=== PATIENT | female | born 1950 | race Caucasian/White ===

== ENCOUNTER 2017-10-21 10:57 | Inpatient (IN) | payer OTHER, MEDICARE ==
[2017-10-21 11:00] VITALS: BMI 32.7
[2017-10-21] MEDS ORDERED: Lidocaine 2% w Epi 1:200,000 Pf Inj IJ ONE (12:02)
[2017-10-21] MEDS ORDERED: Tdap Vaccine 0.5 ml Vial (10-64 yrs) IM ONE ×2 (12:03→13:14)
--- NOTE | 2017-10-21 12:53 | ED PDOC ---
HPI: Trauma/Fall - HPI Chief Complaint (Nursing): Trauma History Per: Patient Onset/Duration Of Symptoms: Hrs (1) Injury Occurred (Timing): Hours Ago: Location Of Injury: Left: Face, Shoulder, Anterior: Face Severity: Moderate Pain Scale Rating Of: 4 Associated Symptoms: Memory Impairment. denies: Dizziness Additional Complaint(s): Fell at work striking head and left shoulder. Does not recall circumstances of fall or if she lost consciousness. Denies dizziness or chest pain or palpitations prior to fall.. No focal weakness or parasthesias Past Medical History Vital Signs: Last Vital Signs Temp 98.3 F 10/21/17 11:00 Pulse 94 H 10/21/17 11:00 Resp 20 10/21/17 11:00 BP 165/101 H 10/21/17 11:00 Pulse Ox 96 10/21/17 11:00 - Medical History PMH: Asthma, Hyperlipidemia - Family History Family History: States: Unknown Family Hx - Allergies Allergies/Adverse Reactions: Allergies Allergy/AdvReac Type Severity Reaction Status Date / Time codeine Allergy RASH Verified 10/21/17 11:30 Review of Systems Cardiovascular: Negative for: Chest Pain, Palpitations Musculoskeletal: Positive for: Shoulder Pain Neurological: Positive for: Headache. Negative for: Weakness, Numbness Physical Exam - Reviewed Nursing Documentation Reviewed: Yes Vital Signs Reviewed: Yes - Physical Exam Appears: Positive for: Non-toxic, No Acute Distress Head Exam: Positive for: NORMOCEPHALIC. Negative for: ATRAUMATIC (2.5 cm lac above left eyebrow. No palp fx or stepoff) Skin: Positive for: Normal Color, Warm, DRY Eye Exam: Positive for: EOMI, Normal appearance, PERRL ENT: Positive for: Normal ENT Inspection Neck: Positive for: Normal, Painless ROM Cardiovascular/Chest: Positive for: Regular Rate, Rhythm Respiratory: Positive for: CNT, Normal Breath Sounds Pulses-Radial (L): 2+ Pulses-Radial (R): 2+ Gastrointestinal/Abdominal: Positive for: Normal Exam, Soft Back: Positive for: Normal Inspection Extremity: Positive for: Tenderness (Left shoulder. No deformity. ROM limited by pain) Neurologic/Psych: Positive for: Alert, Oriented. Negative for: Motor/Sensory Deficits - Laboratory Results Result Diagrams: 10/21/17 13:18 10/21/17 13:18 - ECG O2 Sat by Pulse Oximetry: 96 Procedures - Laceration/Wound Repair Face Wound Length (cm): 2.5 Wound's Depth, Shape: superficial, linear Wound Explored: no foreign body removed Irrigated w/ Saline (ccs): 500 Anesthesia: Lidocaine w/ Epi Volume Anesthetic (ccs): 3 Wound Repaired With: Sutures Suture Size/Type: 6:0, nylon Number of Sutures: 9 Layer Closure?: No Wound Complexity: Simple Disposition - Clinical Impression Clinical Impression: Syncope - Patient ED Disposition Is Patient to be Admitted: Yes - Disposition Disposition Time: 14:57 Condition: FAIR Forms: [employer] ([place]), [facility] ED School/Work Excuse - Pt Status Changed To: Hospital Disposition Of: Observation - POA Present On Arrival: None
[2017-10-21 13:24] LABS: BASO # 0.1 K/uL (0.0-0.2); BASO % 0.5 % (0.0-2.0); EOS # 0.1 K/uL (0.0-0.7); EOS % 0.8 % (0.0-4.0); HEMOGLOBIN 13.3 g/dL (12.0-16.0); LYMPH # 1.4 K/uL (1.0-4.3); LYMPH % 11.5 % (20.0-40.0); MEAN CELL VOLUME 95.2 fl (81.0-99.0); MEAN CORPUSCULAR HEMOGLOBIN 32.4 pg (27.0-31.0); MEAN PLATELET VOLUME 7.7 fl (7.2-11.7); MONO # 0.7 K/uL (0.0-0.8); MONO % 5.4 % (0.0-10.0); NEUT % 81.8 % (50.0-75.0); NRBC % 0.1 % (0.0-0.0); RBC 4.1 Mil/uL (3.80-5.20); RED CELL DISTRIBUTION WIDTH 13.1 % (11.5-14.5); WHITE BLOOD COUNT 12.2 K/uL (4.8-10.8)
[2017-10-21 13:43] LABS: ALBUMIN 4.3 g/dL (3.5-5.0); ALT/SGPT 32 U/L (9-52); AST/SGOT 22 U/L (14-36); BLOOD UREA NITROGEN 26 mg/dl (7-17); CALCIUM 9.3 mg/dL (8.4-10.2); GFR AFRICAN-AMERICAN > 60; GFR NON-AFRICAN AMERICAN > 60
--- NOTE | 2017-10-21 13:53 | RAD ---
PROCEDURE: Radiographs of the Left Shoulder HISTORY: trauma COMPARISON: 11/23/2014 left shoulder radiographs FINDINGS: BONES: Normal. No fracture. JOINTS: Preserved glenohumeral relationship, acromioclavicular degenerative change: Mild SOFT TISSUES: Normal. OTHER FINDINGS: None. IMPRESSION: No acute findings related to/accounting for the clinical presentation. No significant interval change compared to the prior examination(s).
--- NOTE | 2017-10-21 15:05 | CT ---
PROCEDURE: CT HEAD WITHOUT CONTRAST. HISTORY: r/o bleed COMPARISON: None available. TECHNIQUE: Axial computed tomography images were obtained through the head/brain without intravenous contrast. Radiation dose: Total exam DLP = 815.03 mGy-cm. This CT exam was performed using one or more of the following dose reduction techniques: Automated exposure control, adjustment of the mA and/or kV according to patient size, and/or use of iterative reconstruction technique. FINDINGS: HEMORRHAGE: No intracranial hemorrhage. BRAIN: Good corticomedullary differentiation is seen. There is limited white matter lucency compatible with diffuse cerebral atrophy and chronic microangiopathy. No suspicious extra-axial fluid collection is identified and the midline brain anatomy appears grossly nonfocal as imaged. There is no mass effect throughout. VENTRICLES: Unremarkable. No hydrocephalus. CALVARIUM: Unremarkable. PARANASAL SINUSES: Unremarkable as visualized. No significant inflammatory changes. MASTOID AIR CELLS: Unremarkable as visualized. No inflammatory changes. OTHER FINDINGS: None. IMPRESSION: Limited chronic microangiopathy is appreciate with remainder the CT examination of the head unremarkable otherwise. Follow up CT or MRI are available if clinically warranted.
[2017-10-21] MEDS: Sodium Chloride 0.9% 1,000 ML IV SCH (17:56)
--- NOTE | 2017-10-21 18:50 | CP.PCM.HP ---
Past Patient History - Past Medical History & Family History Past Medical History?: Yes - Past Social History Smoking Status: Never Smoked - CARDIAC Hx Cardiac Disorders: Yes Hx Hypercholesterolemia: Yes - PULMONARY Hx Respiratory Disorders: Yes Hx Asthma: Yes - NEUROLOGICAL Hx Neurological Disorder: Yes Hx Syncope: Yes (today) - HEENT Hx HEENT Problems: No - RENAL Hx Chronic Kidney Disease: No - ENDOCRINE/METABOLIC Hx Endocrine Disorders: No - HEMATOLOGICAL/ONCOLOGICAL Hx Blood Disorders: No Hx AIDS: No Hx Human Immunodeficiency Virus (HIV): No - INTEGUMENTARY Hx Dermatological Problems: No - MUSCULOSKELETAL/RHEUMATOLOGICAL Hx Musculoskeletal Disorders: Yes Hx Arthritis: Yes (left shoulder) Hx Falls: Yes (Syncope today) - GASTROINTESTINAL Hx Gastrointestinal Disorders: No - GENITOURINARY/GYNECOLOGICAL Hx Genitourinary Disorders: No - PSYCHIATRIC Hx Psychophysiologic Disorder: No Hx Substance Use: No - SURGICAL HISTORY Hx Surgeries: Yes Hx Joint Replacement: Yes (Bilateral Hip Prosthesis 2003) Other/Comment: LEFT FOOT DISLOCARTION W/ BUNION SURGERY - ANESTHESIA Hx Anesthesia: Yes Hx Anesthesia Reactions: No Hx Malignant Hyperthermia: No Has any member of the family had a problem w/ anesthesia?: No Meds Allergies/Adverse Reactions: Allergies Allergy/AdvReac Type Severity Reaction Status Date / Time codeine Allergy RASH Verified 10/21/17 11:30 Results - Vital Signs Recent Vital Signs: Last Vital Signs Temp 97 F L 10/21/17 17:21 Pulse 90 10/21/17 17:50 Resp 18 10/21/17 17:50 BP 128/78 10/21/17 17:21 Pulse Ox 98 10/21/17 17:50 - Labs Result Diagrams: 10/21/17 13:18 10/21/17 13:18 Labs: Laboratory Results - last 24 hr 10/21/17 10/21/17 10/21/17 11:17 13:18 13:18 WBC 12.2 H RBC 4.10 Hgb 13.3 Hct 39.0 MCV 95.2 MCH 32.4 H MCHC 34.0 RDW 13.1 Plt Count 349 MPV 7.7 Neut % (Auto) 81.8 H Lymph % (Auto) 11.5 L [place] % (Auto) 5.4 Eos % (Auto) 0.8 Baso % (Auto) 0.5 Neut # (Auto) 10.0 H Lymph # (Auto) 1.4 [place] # (Auto) 0.7 Eos # (Auto) 0.1 Baso # (Auto) 0.1 Sodium 140 Potassium 4.1 Chloride 102 Carbon Dioxide 23 Anion Gap 19 BUN 26 H Creatinine 0.4 L Est GFR ( Amer) > 60 Est GFR (Non-Af Amer) > 60 POC Glucose (mg/dL) 95 Random Glucose 107 H Calcium 9.3 Total Bilirubin 0.5 AST 22 ALT 32 Alkaline Phosphatase 119 Troponin I < 0.0120 Total Protein 8.8 H Albumin 4.3 Globulin 4.5 H Albumin/Globulin Ratio 1.0
[2017-10-22] MEDS: Sodium Chloride 0.9% 1,000 ML IV SCH (04:09)
[2017-10-22] MEDS: Enoxaparin 40 mg Syringe SC SCH (08:57)
[2017-10-22 19:39] LABS: SQUAMOUS EPITHIAL 1 /hpf (0-5); URINE BILIRUBIN NEGATIVE (NEGATIVE); URINE BLOOD NEGATIVE (NEGATIVE); URINE CLARITY CLEAR (Clear); URINE COLOR YELLOW (YELLOW); URINE GLUCOSE (UA) NEG (Normal); URINE LEUKOCYTE ESTERASE NEG Leu/uL (Negative); URINE PROTEIN NEGATIVE (NEGATIVE); URINE UROBILINOGEN 0.2-1.0 mg/dL (0.2-1.0)
--- NOTE | 2017-10-22 22:47 | CP.PCM.PN ---
Subjective - Date & Time of Evaluation Date of Evaluation: 10/22/17 Time of Evaluation: 16:50 Objective - Vital Signs/Intake and Output Vital Signs (last 24 hours): Temp Pulse Resp BP Pulse Ox 97.8 F 80 18 135/83 97 10/22/17 19:53 10/22/17 19:53 10/22/17 19:53 10/22/17 19:53 10/22/17 19:53 - Medications Medications: Current Medications Acetaminophen (Tylenol 325mg Tab) 650 mg PO Q6 PRN PRN Reason: Headache Last Admin: 10/22/17 15:47 Dose: 650 mg Atorvastatin Calcium (Lipitor) 40 mg PO HS GALO Last Admin: 10/22/17 21:44 Dose: Not Given Enoxaparin Sodium (Lovenox) 40 mg SC DAILY GALO PRN Reason: Protocol Last Admin: 10/22/17 08:57 Dose: 40 mg Ketorolac Tromethamine (Toradol) 15 mg IVP Q6 PRN PRN Reason: Pain, severe (8-10) Last Admin: 10/22/17 21:43 Dose: 15 mg - Labs Labs: 10/21/17 13:18 10/21/17 13:18
[2017-10-23 05:28] LABS: HEMOGLOBIN 13.4 g/dL (12.0-16.0); MEAN CORPUSCULAR HEMOGLOBIN 32.8 pg (27.0-31.0); MEAN CORPUSCULAR HGB CONC 34.2 g/dL (33.0-37.0); RBC 4.08 Mil/uL (3.80-5.20); RED CELL DISTRIBUTION WIDTH 13.3 % (11.5-14.5); WHITE BLOOD COUNT 10.9 K/uL (4.8-10.8)
[2017-10-23 05:37] LABS: BLOOD UREA NITROGEN 18 mg/dl (7-17); CALCIUM 9.5 mg/dL (8.4-10.2); GFR AFRICAN-AMERICAN > 60; GFR NON-AFRICAN AMERICAN > 60
[2017-10-23] MEDS: Enoxaparin 40 mg Syringe SC SCH (09:33)
--- NOTE | 2017-10-23 09:51 | CP.PCM.CON ---
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 Except for bilateral hip replacement the patient has never been hospitalized. The only medication she takes is a statin. She denies any palpitations or prior syncope or near syncope. She does not have a prior history of hypertension or diabetes and denies any recent history of dehydration. The patient reports that she woke up she had not had bladder or bowel incontinence and had not bitten her tongue. Her coworkers had not reported any repetitive motor activity. Physical examination shows a pleasant middle aged female who is alert awake and coherent sitting in a chair and can carry on a conversation. Telemetry demonstrated steady sinus rhythm at physiological rates. Yesterday following the use of her bathroom she had a lightheaded spell and vomited. (This may represent concussion from the blunt trauma to the head which has also produced a laceration above her left eyebrow.) Her heart rate was 80 bpm regular and her blood pressure was 140/70 mmHg. Her jugular venous pressure was not elevated and there was no edema or lower extremity. The pedal pulses were well felt there were no carotid bruits. Thyroid and breast did not reveal anything abnormal. The apex was not palpable the first and second heart sounds are normal there was no murmur or gallop there were no rales. Her electrocardiogram showed sinus rhythm with a right bundle branch block. Her echocardiogram showed preserved left ventricular systolic function with depressed diastolic compliance. Her lab data was noted. Impression: Syncope. Rule out seizure disorder. At this point no evidence of cardiovascular abnormality has been detected to indicate etiology of her syncopal episode. I would strongly recommend a neurological evaluation. Past Patient History - Past Medical History & Family History Past Medical History?: Yes - Past Social History Smoking Status: Never Smoked - CARDIAC Hx Cardiac Disorders: Yes Hx Hypercholesterolemia: Yes - PULMONARY Hx Respiratory Disorders: Yes Hx Asthma: Yes - NEUROLOGICAL Hx Neurological Disorder: Yes Hx Syncope: Yes (today) - HEENT Hx HEENT Problems: No - RENAL Hx Chronic Kidney Disease: No - ENDOCRINE/METABOLIC Hx Endocrine Disorders: No - HEMATOLOGICAL/ONCOLOGICAL Hx Blood Disorders: No Hx AIDS: No Hx Human Immunodeficiency Virus (HIV): No - INTEGUMENTARY Hx Dermatological Problems: No - MUSCULOSKELETAL/RHEUMATOLOGICAL Hx Musculoskeletal Disorders: Yes Hx Arthritis: Yes (left shoulder) Hx Falls: Yes (Syncope today) - GASTROINTESTINAL Hx Gastrointestinal Disorders: No - GENITOURINARY/GYNECOLOGICAL Hx Genitourinary Disorders: No - PSYCHIATRIC Hx Psychophysiologic Disorder: No Hx Substance Use: No - SURGICAL HISTORY Hx Surgeries: Yes Hx Joint Replacement: Yes (Bilateral Hip Prosthesis 2003) Other/Comment: LEFT FOOT DISLOCARTION W/ BUNION SURGERY - ANESTHESIA Hx Anesthesia: Yes Hx Anesthesia Reactions: No Hx Malignant Hyperthermia: No Has any member of the family had a problem w/ anesthesia?: No Meds Allergies/Adverse Reactions: Allergies Allergy/AdvReac Type Severity Reaction Status Date / Time codeine Allergy RASH Verified 10/21/17 11:30 - Medications Medications: Current Medications Acetaminophen (Tylenol 325mg Tab) 650 mg PO Q6 PRN PRN Reason: Headache Last Admin: 10/22/17 15:47 Dose: 650 mg Atorvastatin Calcium (Lipitor) 40 mg PO HS GALO Last Admin: 10/22/17 21:44 Dose: Not Given Enoxaparin Sodium (Lovenox) 40 mg SC DAILY GALO PRN Reason: Protocol Last Admin: 10/23/17 09:33 Dose: Not Given Ketorolac Tromethamine (Toradol) 15 mg IVP Q6 PRN PRN Reason: Pain, severe (8-10) Last Admin: 10/22/17 21:43 Dose: 15 mg Results - Vital Signs Recent Vital Signs: Last Vital Signs Temp 97.9 F 10/23/17 07:54 Pulse 98 H 10/23/17 07:54 Resp 18 10/23/17 07:54 BP 154/82 H 10/23/17 07:54 Pulse Ox 96 10/23/17 07:54 - Labs Result Diagrams: 10/23/17 04:20 10/23/17 04:20 Labs: Laboratory Results - last 24 hr 10/22/17 10/23/17 10/23/17 19:10 04:20 04:20 WBC 10.9 H RBC 4.08 Hgb 13.4 Hct 39.1 MCV 96.0 MCH 32.8 H MCHC 34.2 RDW 13.3 Plt Count 355 Sodium 139 Potassium 4.2 Chloride 101 Carbon Dioxide 25 Anion Gap 17 BUN 18 H Creatinine 0.4 L Est GFR ( Amer) > 60 Est GFR (Non-Af Amer) > 60 Random Glucose 106 H Calcium 9.5 Urine Color Yellow Urine Clarity Clear Urine pH 5.0 Ur Specific [place] 1.024 Urine Protein Negative Urine Glucose (UA) Neg Urine Ketones Negative Urine Blood Negative Urine Nitrate Negative Urine Bilirubin Negative Urine Urobilinogen 0.2-1.0 Ur Leukocyte Esterase Neg Urine RBC (Auto) 1 Urine Microscopic WBC 2 Ur Squamous Epith Cells 1 Hyaline Casts 3-5 H
--- NOTE | 2017-10-23 11:46 | CARD ---
APPROVED REPORT EXAM: Two-dimensional and M-mode echocardiogram with Doppler and color Doppler. Other Information Quality : GoodRhythm : NSR INDICATION Syncope 2D DIMENSIONS IVSd1.13 (0.7-1.1cm)LVDd4.26 (3.9-5.9cm) LVOT Diameter1.76 (1.8-2.4cm)PWd1.04 (0.7-1.1cm) IVSs1.38 (0.8-1.2cm)LVDs2.78 (2.5-4.0cm) FS (%) 34.6 %PWs1.48 (0.8-1.2cm) M-Mode DIMENSIONS Left Atrium (MM)3.99 (2.5-4.0cm)IVSd1.06 (0.7-1.1cm) Aortic Root2.96 (2.2-3.7cm)LVDd4.68 (4.0-5.6cm) Aortic Cusp Exc.1.90 (1.5-2.0cm)PWd0.77 (0.7-1.1cm) IVSs1.90 cmFS (%) 52 % LVDs2.26 (2.0-3.8cm)PWs1.39 cm Aortic Valve AoV Peak Mpzhdluj495.2cm/sAoV VTI25.0cmAO Peak GR.6mmHg LVOT Peak Gejlpypj098.2cm/sLVOT VTI22.36cmAO Mean GR.3mmHg DUANE (VMAX)1.17hl2SXA (VTI)1.19cm2 Mitral Valve MV E Uxrdopif76.8cm/sMV DECEL VSYN026haNY A Neqnbnuz86.6cm/s MV QXK95pvB/A ratio0.7MVA (PHT)2.56cm2 TDI Lateral E' Peak V8.31cm/sMedial E' Peak V7.09cm/sE/Lateral E'7.2 E/Medial E'8.4 Pulmonary Valve PV Peak Zltirodl444.0cm/s LEFT VENTRICLE The left ventricle is normal size. There is normal left ventricular wall thickness. The left ventricular function is normal. The left ventricular ejection fraction is 60% There is normal LV segmental wall motion. Transmitral Doppler flow pattern is Grade I-abnormal relaxation pattern. No left ventricle thrombus noted on this study. There is no ventricular septal defect visualized. There is no left ventricular aneurysm. There is no mass noted in the left ventricle. RIGHT VENTRICLE The right ventricle is normal size. There is normal right ventricular wall thickness. The right ventricular systolic function is normal. ATRIA The left atrium size is normal. The right atrium size is normal. The interatrial septum is intact with no evidence for an atrial septal defect. AORTIC VALVE The aortic valve is normal in structure. No aortic regurgitation is present. There is no aortic valvular stenosis. There is no aortic valvular vegetation. MITRAL VALVE The mitral valve is normal in structure. There is no evidence of mitral valve prolapse. There is no mitral valve stenosis. There is no mitral valve regurgitation noted. TRICUSPID VALVE The tricuspid valve is normal in structure. There is no tricuspid valve regurgitation noted. There is no tricuspid valve prolapse or vegetation. There is no tricuspid valve stenosis. PULMONIC VALVE The pulmonary valve is normal in structure. There is no pulmonic valvular regurgitation. There is no pulmonic valvular stenosis. GREAT VESSELS The aortic root is normal in size. The ascending aorta is normal in size. The IVC is normal in size and collapses >50% with inspiration. PERICARDIAL EFFUSION The pericardium appears normal. There is no pleural effusion. <Conclusion> Essentially Normal Echocardiogram
--- NOTE | 2017-10-23 11:53 | CT ---
PROCEDURE: CT HEAD WITHOUT CONTRAST. HISTORY: syncope COMPARISON: Unenhanced head CT 10/21/2017. TECHNIQUE: Axial computed tomography images were obtained through the head/brain without intravenous contrast. Radiation dose: Total exam DLP = 815.78 mGy-cm. This CT exam was performed using one or more of the following dose reduction techniques: Automated exposure control, adjustment of the mA and/or kV according to patient size, and/or use of iterative reconstruction technique. FINDINGS: HEMORRHAGE: No intracranial hemorrhage. BRAIN: Limited periventricular white matter lucency is appreciate as well as of the bilateral centrum semiovale regions compatible chronic microangiopathy. The pattern is stable as compared prior head CT 10/21/2017. No definite acute cortical edema or mass effect in the interval. Brain parenchyma above and below the tentorium including the brainstem appears stable. VENTRICLES: Unremarkable. No hydrocephalus. CALVARIUM: Unremarkable. PARANASAL SINUSES: Unremarkable as visualized. No significant inflammatory changes. MASTOID AIR CELLS: Unremarkable as visualized. No inflammatory changes. OTHER FINDINGS: None. IMPRESSION: Stable limited age-related neuro degenerative change comprise of chronic microangiopathy alone. No intracanal hemorrhage, mass effect or cortical edema is identified in the interval. Continued clinical and possible brain imaging follow-up are advised.
[2017-10-23] MEDS ORDERED: Iodixanol 320 MG/ML 100 ML BOTTLE IV ONE (12:06)
[2017-10-23] MEDS ORDERED: Sodium Chloride 0.9% 100 ML ONE (12:06)
[2017-10-23 13:03] LABS: T3 0.702 nmol/L (1.49-2.60)
[2017-10-23] MEDS: Magnesium Oxide 400 mg Tab UD PO SCH ×2 (13:38→17:16)
--- NOTE | 2017-10-23 13:46 | US ---
PROCEDURE: Duplex ultrasound of the carotid and vertebral arteries. HISTORY: syncope COMPARISON: None available. TECHNIQUE: Grayscale and duplex Doppler evaluation of the cervical carotid and vertebral arteries were performed. The common carotid, carotid bifurcations and cervical ICA and proximal ECA were evaluated. The vertebral arteries were evaluated for gross patency and direction. FINDINGS: RIGHT CAROTID ARTERIES: Common Carotid Artery: Normal. Maximal flow velocity of 143.9 cm/s. Carotid Bifurcation: Normal. Internal Carotid Artery:Normal. Maximal flow velocity of 99.0 cm/s. External Carotid Artery (proximal branches): Normal. Maximal flow velocity of 124.2 cm/s. ICA/CCA Ratio: 1.7 LEFT CAROTID ARTERIES: Common Carotid Artery: Normal. Maximal flow velocity of 122.6 cm/s. Carotid Bifurcation: Normal. Internal Carotid Artery:Normal. Maximal flow velocity of 98.9 cm/s. External Carotid Artery (proximal branches): Normal. Maximal flow velocity of 108.1 cm/s. ICA/CCA Ratio: 1.1 VERTEBRAL ARTERIES: Right Vertebral Artery: Patent. Antegrade flow. Left Vertebral Artery: Patent. Antegrade flow. Increased peak systolic velocity of 108.1 cm/s. OTHER FINDINGS: None. IMPRESSION: Per NASCET criteria, less than 50 percent stenosis of the internal carotid arteries bilaterally. Elevated peak systolic velocity of the left vertebral artery.
--- NOTE | 2017-10-23 15:08 | CP.PCM.CON ---
History of Present Illness - History of Present Illness History of Present Illness: Mrs. Byrnes is a 67-year-old woman with a past medical history of HLD and bilateral hip replacements, who was at work yesterday and had a syncopal episode without any previous symptoms or aura. When she woke up, she was confused as to what had happened, but was not lethargic. There was no urinary/ bowel incontinence, tongue biting or fractures. She did sustain a laceration to her head over the left eyebrow. Yesterday, after she was in the hospital, she went to go to the bathroom, got up and felt dizzy with a subsequent episode of vomiting. She has not had any other incidents since. Review of Systems - Review of Systems All systems: reviewed and no additional remarkable complaints except Past Patient History - Past Medical History & Family History Past Medical History?: Yes - Past Social History Smoking Status: Never Smoked - CARDIAC Hx Cardiac Disorders: Yes Hx Hypercholesterolemia: Yes - PULMONARY Hx Respiratory Disorders: Yes Hx Asthma: Yes - NEUROLOGICAL Hx Neurological Disorder: Yes Hx Syncope: Yes (today) - HEENT Hx HEENT Problems: No - RENAL Hx Chronic Kidney Disease: No - ENDOCRINE/METABOLIC Hx Endocrine Disorders: No - HEMATOLOGICAL/ONCOLOGICAL Hx Blood Disorders: No Hx AIDS: No Hx Human Immunodeficiency Virus (HIV): No - INTEGUMENTARY Hx Dermatological Problems: No - MUSCULOSKELETAL/RHEUMATOLOGICAL Hx Musculoskeletal Disorders: Yes Hx Arthritis: Yes (left shoulder) Hx Falls: Yes (Syncope today) - GASTROINTESTINAL Hx Gastrointestinal Disorders: No - GENITOURINARY/GYNECOLOGICAL Hx Genitourinary Disorders: No - PSYCHIATRIC Hx Psychophysiologic Disorder: No Hx Substance Use: No - SURGICAL HISTORY Hx Surgeries: Yes Hx Joint Replacement: Yes (Bilateral Hip Prosthesis 2003) Other/Comment: LEFT FOOT DISLOCARTION W/ BUNION SURGERY - ANESTHESIA Hx Anesthesia: Yes Hx Anesthesia Reactions: No Hx Malignant Hyperthermia: No Has any member of the family had a problem w/ anesthesia?: No Meds Allergies/Adverse Reactions: Allergies Allergy/AdvReac Type Severity Reaction Status Date / Time codeine Allergy RASH Verified 10/21/17 11:30 - Medications Medications: Current Medications Acetaminophen (Tylenol 325mg Tab) 650 mg PO Q6 PRN PRN Reason: Headache Last Admin: 10/22/17 15:47 Dose: 650 mg Atorvastatin Calcium (Lipitor) 40 mg PO HS GALO Last Admin: 10/22/17 21:44 Dose: Not Given Enoxaparin Sodium (Lovenox) 40 mg SC DAILY GALO PRN Reason: Protocol Last Admin: 10/23/17 09:33 Dose: Not Given Ketorolac Tromethamine (Toradol) 15 mg IVP Q6 PRN PRN Reason: Pain, severe (8-10) Last Admin: 10/22/17 21:43 Dose: 15 mg Magnesium Oxide (Mag-Ox) 400 mg PO BID [facility] Last Admin: 10/23/17 13:38 Dose: 400 mg Physical Exam - Head Exam Additional comments: Bilateral teri-orbital echymosis worse on the left with supraorbital laceration s/p sutures - Neurological Exam Neurological exam: Alert, CN II-XII Intact, Normal Gait, Oriented x3, Reflexes Normal Additional comments: Left arm is limited due to pain. Results - Vital Signs Recent Vital Signs: Last Vital Signs Temp 98.5 F 10/23/17 13:00 Pulse 101 H 10/23/17 13:00 Resp 18 10/23/17 13:00 BP 123/74 10/23/17 13:00 Pulse Ox 96 10/23/17 13:00 - Labs Result Diagrams: 10/23/17 04:20 10/23/17 04:20 Labs: Laboratory Results - last 24 hr 10/22/17 10/23/17 10/23/17 19:10 04:20 04:20 WBC 10.9 H RBC 4.08 Hgb 13.4 Hct 39.1 MCV 96.0 MCH 32.8 H MCHC 34.2 RDW 13.3 Plt Count 355 Sodium 139 Potassium 4.2 Chloride 101 Carbon Dioxide 25 Anion Gap 17 BUN 18 H Creatinine 0.4 L Est GFR ( Amer) > 60 Est GFR (Non-Af Amer) > 60 Random Glucose 106 H Calcium 9.5 Total T3 TSH 3rd Generation Urine Color Yellow Urine Clarity Clear Urine pH 5.0 Ur Specific [place] 1.024 Urine Protein Negative Urine Glucose (UA) Neg Urine Ketones Negative Urine Blood Negative Urine Nitrate Negative Urine Bilirubin Negative Urine Urobilinogen 0.2-1.0 Ur Leukocyte Esterase Neg Urine RBC (Auto) 1 Urine Microscopic WBC 2 Ur Squamous Epith Cells 1 Hyaline Casts 3-5 H 10/23/17 11:00 WBC RBC Hgb Hct MCV MCH MCHC RDW Plt Count Sodium Potassium Chloride Carbon Dioxide Anion Gap BUN Creatinine Est GFR ( Amer) Est GFR (Non-Af Amer) Random Glucose Calcium Total T3 0.702 L TSH 3rd Generation 0.92 Urine Color Urine Clarity Urine pH Ur Specific [place] Urine Protein Urine Glucose (UA) Urine Ketones Urine Blood Urine Nitrate Urine Bilirubin Urine Urobilinogen Ur Leukocyte Esterase Urine RBC (Auto) Urine Microscopic WBC Ur Squamous Epith Cells Hyaline Casts Assessment & Plan (1) Syncope Assessment and Plan: Based on the history provided, the patient likely had a vaso-vagal episode or neurocardiogenic syncope. I recommend the following to rule out seizure or VBI: 1. Telemetry 2. Echocardiogram 3. MRI brain without contrast 4. CTA of the head/neck 5. EEG awake and drowsy for 30 minutes 6. Fluids with NS at 100 mL/hr 7. PT/OT eval Thank you. Status: Acute Priority: High
--- NOTE | 2017-10-23 17:17 | CT ---
PROCEDURE: CT Angiography of the Brain. HISTORY: syncope COMPARISON: None available. TECHNIQUE: CT angiography of the intracranial and neck arteries was performed. Coronal and sagittal maximum intensity projection reformatted images were generated. Contrast Dose: Visipaque 320, 100 cc Radiation dose:Total exam DLP = 649.65 mGy-cm. This CT exam was performed using one or more of the following dose reduction techniques: Automated exposure control, adjustment of the mA and/or kV according to patient size, and/or use of iterative reconstruction technique. FINDINGS: INTERNAL CEREBRAL ARTERIES: Unremarkable. The skull base, petrous, cavernous and supraclinoid segments are bilaterally widely patent. ANTERIOR CEREBRAL ARTERIES: Unremarkable. A1 and A2 segments are widely patent. Smaller distal branches unremarkable, as visualized. MIDDLE CEREBRAL ARTERIES: Unremarkable. M1 and M2 segments are widely patent. Perisylvian branches grossly symmetric. POSTERIOR CIRCULATION: Basilar Artery: Unremarkable. Distal Vertebral Arteries: A left dominant vertebrobasilar circulation is appreciated with due to a hypoplastic distal right vertebral artery. Posterior Cerebral Arteries: Unremarkable. Posterior Inferior Cerebellar Arteries: Unremarkable. NECK CTA: Common Carotid arteries: The bilateral common carotid appear widely patent from their origins to their bifurcations with no significant stenosis appreciated. No evidence to suggest common carotid artery dissection. Internal Carotid arteries: No significant stenosis is appreciated throughout the cervical internal carotid artery segments bilaterally and there is no evidence of dissection either. External Carotid arteries: Appear unremarkable bilaterally. Vertebral arteries: The bilateral vertebral arteries appear normal in caliber from their origins to their junction with the basilar artery. No significant stenosis or definite pattern of dissection. ANEURYSM/ VASCULAR MALFORMATIONS: None. OTHER FINDINGS: None. IMPRESSION: Generally unremarkable intracranial CT angiography. Hypoplastic distal right vertebral artery with left dominant vertebrobasilar circulation. Unremarkable CT angiogram of the neck.
--- NOTE | 2017-10-23 22:56 | CP.PCM.PN ---
Subjective - Date & Time of Evaluation Date of Evaluation: 10/23/17 Time of Evaluation: 11:35 Objective - Vital Signs/Intake and Output Vital Signs (last 24 hours): Temp Pulse Resp BP Pulse Ox 98.0 F 106 H 20 137/78 95 10/23/17 20:03 10/23/17 20:03 10/23/17 20:03 10/23/17 20:03 10/23/17 20:03 - Medications Medications: Current Medications Acetaminophen (Tylenol 325mg Tab) 650 mg PO Q6 PRN PRN Reason: Headache Last Admin: 10/23/17 21:12 Dose: 650 mg Atorvastatin Calcium (Lipitor) 40 mg PO HS [facility] Last Admin: 10/23/17 21:11 Dose: 40 mg Enoxaparin Sodium (Lovenox) 40 mg SC DAILY [facility] PRN Reason: Protocol Last Admin: 10/23/17 09:33 Dose: Not Given Ketorolac Tromethamine (Toradol) 15 mg IVP Q6 PRN PRN Reason: Pain, severe (8-10) Last Admin: 10/22/17 21:43 Dose: 15 mg Magnesium Oxide (Mag-Ox) 400 mg PO BID [facility] Last Admin: 10/23/17 17:16 Dose: 400 mg - Labs Labs: 10/23/17 04:20 10/23/17 04:20
[2017-10-24 08:06] VITALS: RESP 20
[2017-10-24] MEDS: Enoxaparin 40 mg Syringe SC SCH (08:32)
[2017-10-24] MEDS: Magnesium Oxide 400 mg Tab UD PO SCH ×2 (08:33→16:04)
[2017-10-24 13:29] VITALS: TEMP 97.9
[2017-10-24 15:52] VITALS: BP 151/83; PULSE 98; O2SAT 95
--- NOTE | 2017-10-25 09:25 | CP.PCM.DIS ---
Provider - Provider Date of Admission: 10/23/17 14:08 Attending physician: Brando Ho MD Time Spent in preparation of Discharge (in minutes): 35 Hospital Course - Lab Results Lab Results: Most Recent Lab Values WBC 10.9 K/uL (4.8-10.8) H 10/23/17 04:20 RBC 4.08 Mil/uL (3.80-5.20) 10/23/17 04:20 Hgb 13.4 g/dL (12.0-16.0) 10/23/17 04:20 Hct 39.1 % (34.0-47.0) 10/23/17 04:20 MCV 96.0 fl (81.0-99.0) 10/23/17 04:20 MCH 32.8 pg (27.0-31.0) H 10/23/17 04:20 MCHC 34.2 g/dL (33.0-37.0) 10/23/17 04:20 RDW 13.3 % (11.5-14.5) 10/23/17 04:20 Plt Count 355 K/uL (130-400) 10/23/17 04:20 MPV 7.7 fl (7.2-11.7) 10/21/17 13:18 Neut % (Auto) 81.8 % (50.0-75.0) H 10/21/17 13:18 Lymph % (Auto) 11.5 % (20.0-40.0) L 10/21/17 13:18 Whitman % (Auto) 5.4 % (0.0-10.0) 10/21/17 13:18 Eos % (Auto) 0.8 % (0.0-4.0) 10/21/17 13:18 Baso % (Auto) 0.5 % (0.0-2.0) 10/21/17 13:18 Neut # (Auto) 10.0 K/uL (1.8-7.0) H 10/21/17 13:18 Lymph # (Auto) 1.4 K/uL (1.0-4.3) 10/21/17 13:18 Whitman # (Auto) 0.7 K/uL (0.0-0.8) 10/21/17 13:18 Eos # (Auto) 0.1 K/uL (0.0-0.7) 10/21/17 13:18 Baso # (Auto) 0.1 K/uL (0.0-0.2) 10/21/17 13:18 Sodium 139 mmol/l (132-148) 10/23/17 04:20 Potassium 4.2 MMOL/L (3.6-5.0) 10/23/17 04:20 Chloride 101 mmol/L (98-107) 10/23/17 04:20 Carbon Dioxide 25 mmol/L (22-30) 10/23/17 04:20 Anion Gap 17 (10-20) 10/23/17 04:20 BUN 18 mg/dl (7-17) H 10/23/17 04:20 Creatinine 0.4 mg/dl (0.7-1.2) L 10/23/17 04:20 Est GFR ( Amer) > 60 10/23/17 04:20 Est GFR (Non-Af Amer) > 60 10/23/17 04:20 POC Glucose (mg/dL) 102 mg/dL (65-110) 10/21/17 21:42 Random Glucose 106 mg/dL (65-105) H 10/23/17 04:20 Calcium 9.5 mg/dL (8.4-10.2) 10/23/17 04:20 Total Bilirubin 0.5 mg/dl (0.2-1.3) 10/21/17 13:18 AST 22 U/L (14-36) 10/21/17 13:18 ALT 32 U/L (9-52) 10/21/17 13:18 Alkaline Phosphatase 119 U/L (38-126) 10/21/17 13:18 Troponin I < 0.0120 ng/mL (0.00-0.120) 10/22/17 05:30 Total Protein 8.8 G/DL (6.3-8.2) H 10/21/17 13:18 Albumin 4.3 g/dL (3.5-5.0) 10/21/17 13:18 Globulin 4.5 gm/dL (2.2-3.9) H 10/21/17 13:18 Albumin/Globulin Ratio 1.0 (1.0-2.1) 10/21/17 13:18 Total T3 0.702 nmol/L (1.49-2.60) L 10/23/17 11:00 TSH 3rd Generation 0.92 mIU/ML (0.46-4.68) 10/23/17 11:00 Urine Color Yellow (YELLOW) 10/22/17 19:10 Urine Clarity Clear (Clear) 10/22/17 19:10 Urine pH 5.0 (5.0-8.0) 10/22/17 19:10 Ur Specific [place] 1.024 (1.003-1.030) 10/22/17 19:10 Urine Protein Negative mg/dL (NEGATIVE) 10/22/17 19:10 Urine Glucose (UA) Neg mg/dL (Normal) 10/22/17 19:10 Urine Ketones Negative mg/dL (NEGATIVE) 10/22/17 19:10 Urine Blood Negative (NEGATIVE) 10/22/17 19:10 Urine Nitrate Negative (NEGATIVE) 10/22/17 19:10 Urine Bilirubin Negative (NEGATIVE) 10/22/17 19:10 Urine Urobilinogen 0.2-1.0 mg/dL (0.2-1.0) 10/22/17 19:10 Ur Leukocyte Esterase Neg Lesly/uL (Negative) 10/22/17 19:10 Urine RBC (Auto) 1 /hpf (0-3) 10/22/17 19:10 Urine Microscopic WBC 2 /hpf (0-5) 10/22/17 19:10 Ur Squamous Epith Cells 1 /hpf (0-5) 10/22/17 19:10 Hyaline Casts 3-5 /hpf (0-2) H 10/22/17 19:10 Discharge Exam - Head Exam Head Exam: NORMOCEPHALIC. absent: ATRAUMATIC (2.5 cm lac above left eyebrow. No palp fx or stepoff) Discharge Plan - Discharge Medications Prescriptions: Magnesium Oxide [Mag-Ox] 400 mg PO BID #60 tab - Follow Up Plan Condition: FAIR Disposition: HOME/ ROUTINE Instructions: Syncope (Fainting) (DC) Additional Instructions: pt. cleared for discharge to home today Alden and Dr.Korya may current meds f/u with pmd in 1 week Referrals: Nolan Salazar MD [Family Provider] -
--- NOTE | 2017-10-25 12:27 | CARD ---
APPROVED REPORT EKG Measurement Heart [id number] <Conclusion> Normal sinus rhythm Possible Left atrial enlargement Right bundle branch block Abnormal ECG
== END 2017-10-24 17:16 | disposition home or self-care (01) | DRG 312 ==
LOC: H.ER 10:57 → H.ERHOLD 14:55 → H.TEL 16:47 → OBSVTOIN 10-23 14:08
PROVIDERS: ADMIT Internal Medicine; ATTEND Internal Medicine
PROC: 0HQ1XZZ Repair Face Skin, External Approach (ICD-10-PCS; principal; 2017-10-21)
PROC: 3E0234Z Introduction of Serum, Toxoid and Vaccine into Muscle, Percutaneous Approach (ICD-10-PCS; 2017-10-21)
DX: R55 Syncope and collapse (principal); I45.10 Unspecified right bundle-branch block; E78.5 Hyperlipidemia, unspecified; J45.909 Unspecified asthma, uncomplicated; E78.00 Pure hypercholesterolemia, unspecified; S01.112A Laceration without foreign body of left eyelid and periocular area, initial encounter; W18.39XA Other fall on same level, initial encounter; M19.90 Unspecified osteoarthritis, unspecified site; Z23 Encounter for immunization; Z88.6 Allergy status to analgesic agent; Z96.643 Presence of artificial hip joint, bilateral; Y92.89 Other specified places as the place of occurrence of the external cause

== ENCOUNTER 2017-10-28 12:01 | Emergency (ER) | payer MEDICARE, OTHER ==
[2017-10-28 12:01] VITALS: BMI 32.7
--- NOTE | 2017-10-28 13:25 | ED PDOC ---
HPI: Wound Care - HPI Time Seen by Provider: 10/28/17 13:06 Chief Complaint (Nursing): Suture/Staple Removal History Per: Patient Additional Complaint(s): Pt. here for suture removal on her L eyebrow. States she had 9 sutures placed 7 days ago. Offers no complaints. Denies pain, discharge, rash. Past Medical History Reviewed: Historical Data, Nursing Documentation, Vital Signs Vital Signs: Last Vital Signs Temp 96.2 F L 10/28/17 13:06 Pulse 84 10/28/17 13:06 Resp 20 10/28/17 13:06 BP 125/77 10/28/17 13:06 Pulse Ox 98 10/28/17 13:06 - Medical History PMH: Arthritis (left shoulder), Asthma, Hypercholesterolemia, Hyperlipidemia Denies: HIV, Chronic Kidney Disease - Family History Family History: States: No Known Family Hx - Home Medications Home Medications: Ambulatory Orders Medication Instructions Recorded Atorvastatin [Lipitor] 40 mg PO HS 10/21/17 Magnesium Oxide [Mag-Ox] 400 mg PO BID #60 tab 10/24/17 - Allergies Allergies/Adverse Reactions: Allergies Allergy/AdvReac Type Severity Reaction Status Date / Time codeine Allergy RASH Verified 10/28/17 13:06 Review of Systems ROS Statement: Except As Marked, All Systems Reviewed And Found Negative Physical Exam - Physical Exam Appears: Positive for: Well, Non-toxic, No Acute Distress ENT: Positive for: Other ([address] over L eye brow with scabbing but no dehisence, surrounding erythema, tenderness, swelling, or discharge) - ECG O2 Sat by Pulse Oximetry: 98 - Progress ED Course And Treament: 9 sutures removed by PA without difficulty. Pt. tolerated procedure well. Disposition - Clinical Impression Clinical Impression: Encounter for removal of sutures - Patient ED Disposition Is Patient to be Admitted: No - Disposition Referrals: Billie May [Outside] Disposition: Routine/Home Disposition Time: 13:24 Condition: STABLE Instructions: Stitches Removal Print Language: EQUATORIAL GUINEAN
[2017-10-28 13:32] VITALS: BP 122/76; PULSE 78; RESP 18; TEMP 98; O2SAT 99
== END 2017-10-28 13:53 | disposition home or self-care (01) ==
LOC: H.ER 12:01
DX: Z48.02 Encounter for removal of sutures (principal)